=== PATIENT | male | born 1990 | race Caucasian/White ===

== ENCOUNTER 2024-10-09 16:53 | Emergency (ER) | payer MEDICAID ==
[~2024-10-09] VITALS: Ht 182.8 cm; Wt 70.3 kg
[2024-10-09 17:41] LABS: BILIRUBIN Negative (Negative); BLOOD Negative (Negative); CLARITY Clear (Clear); COLOR Yellow (Yellow); GLUCOSE Negative (Negative); KETONE Trace (Negative); LEUKO ESTERASE Negative (Negative); NITRITE Negative (Negative); SPECIFIC GRAVITY >= 1.030 (1.001-1.030)
[2024-10-09 17:51] LABS: EPITHELIAL CELLS 0-2
== END 2024-10-09 18:14 | disposition left against medical advice (07) ==
LOC: ED 16:53
PROVIDERS: Internal Medicine
DX: Z00.8 Encounter for other general examination (principal); Z53.29 Procedure and treatment not carried out because of patient's decision for other reasons